=== PATIENT | female | born 1980 | race Caucasian/White ===

== ENCOUNTER 2017-02-14 12:29 | Inpatient (IN) | payer OTHER ==
[~2017-02-14] VITALS: Ht 157.4 cm; Wt 55.9 kg
[2017-02-14 12:30] VITALS: BP 100/64
[2017-02-14 12:54] LABS: HEMATOCRIT 39.6 % (37.0-47.0); HEMOGLOBIN 13.4 g/dl (12.0-16.0); MEAN CORPUSCULAR HGB 34.2 pg (27.0-31.0); MEAN CORPUSCULAR HGB CONC 33.8 g/dl (33.0-37.0); MEAN PLATELET VOLUME 10.7 fl (9.6-12.3); PLATELET COUNT AUTOMATED 219 10*3/uL (130-400); RED BLOOD COUNT 3.92 10*6/uL (4.10-5.10); RED CELL DISTRI WIDTH 13.1 % (0-14.5); WHITE BLOOD COUNT 27.8 10*3/uL (4.8-10.8)
[2017-02-14 13:06] LABS: PROTHROMBIN TIME 10.3 SECONDS (9.0-12.4)
[2017-02-14 13:11] LABS: LYMPHOCYTE # 1.4 10*3/uL (1.3-4.4); MONOCYTE # 1.4 10*3/uL (0.1-1.0); NEUTROPHILS 90 % (47-73); PLATELET SUFFICIENCY NORMAL (NORMAL); TOTAL CELLS COUNTED 100 #CELLS
[2017-02-14 13:12] LABS: ALBUMIN 3.2 gm/dl (3.1-4.5); ALKALINE PHOSPHATASE 86 U/L (45-117); BILIRUBIN, TOTAL 0.4 mg/dl (0.2-1.0); BUN 9 mg/dl (7-24); CARBON DIOXIDE 25 mmol/L (21-32); CHLORIDE 108 mmol/L (98-107); EST GLOM FILT AFRICAN AMERICAN > 60 ml/min; GLUCOSE 88 mg/dL (65-99); POTASSIUM 3.7 mmol/L (3.5-5.1); SGOT/AST 8 IU/L (3-35); SGPT/ALT 10 U/L (12-78); SODIUM 138 mmol/L (136-145); TOTAL PROTEIN 6.9 gm/dL (6.4-8.2)
[2017-02-14 13:15] LABS: TROPONIN I < 0.015 ng/ml (<0.045)
[2017-02-14 14:50] VITALS: BP 99/60
[2017-02-14 15:30] VITALS: BP 100/66
[2017-02-14 20:00] VITALS: BP 96/59
[2017-02-15] VITALS: BP 97/60
[2017-02-15 06:13] LABS: BASO % 0.1 % (0.0-1.0); EOS % 0.1 % (1.0-4.0); IG # 0.3 10*3/uL (0.0-0.1); LYMPH # 1.6 10*3/uL (1.3-4.4); LYMPH % 8.1 % (27.0-41.0); MEAN CORPUSCULAR HGB CONC 33.6 g/dl (33.0-37.0); MEAN PLATELET VOLUME 10.8 fl (9.6-12.3); MONO # 1.3 10*3/uL (0.1-1.0); MONO % 6.7 % (3.0-9.0); NEUT # 16.4 10*3/uL (2.3-7.9); NEUT % 83.6 % (47.0-73.0); PLATELET COUNT AUTOMATED 187 10*3/uL (130-400); RED BLOOD COUNT 3.15 10*6/uL (4.10-5.10); RED CELL DISTRI WIDTH 13.2 % (0-14.5); WHITE BLOOD COUNT 19.6 10*3/uL (4.8-10.8)
[2017-02-15 06:15] LABS: HEMOGLOBIN 10.7 g/dl (12.0-16.0)
[2017-02-15 06:16] LABS: HEMATOCRIT 31.8 % (37.0-47.0)
[2017-02-15 06:20] LABS: BUN 7 mg/dl (7-24); CARBON DIOXIDE 21 mmol/L (21-32); CHLORIDE 113 mmol/L (98-107); CHOLESTEROL 76 mg/dL (<200); EST GLOM FILT AFRICAN AMERICAN > 60 ml/min; FREE T4 1.17 ng/dl (0.76-1.46); GLUCOSE 91 mg/dL (65-99); HDL CHOLESTEROL 33 mg/dl (40-60); LDL CHOLESTEROL 33 mg/dL (9-159); MAGNESIUM 1.6 mg/dL (1.5-2.1); POTASSIUM 3.2 mmol/L (3.5-5.1); SODIUM 140 mmol/L (136-145); TRIGLYCERIDES 50 mg/dl (<150); VLDL CHOLESTEROL 10 mg/dL (6-40)
[2017-02-15 06:55] LABS: FOLIC ACID 3.44 ng/mL (>5.38)
[2017-02-15 08:00] VITALS: BP 103/66
[2017-02-15 12:00] VITALS: BP 99/61
[2017-02-15 16:00] VITALS: BP 101/66
[2017-02-15 20:00] VITALS: BP 140/82
[2017-02-16] VITALS: BP 130/58
[2017-02-16 08:41] LABS: BILIRUBIN NEGATIVE (NEGATIVE); BLOOD TRACE-INTACT (NEGATIVE); CLARITY CLOUDY (CLEAR); COLOR YELLOW (YELLOW); GLUCOSE NEGATIVE (NEGATIVE); KETONE NEGATIVE (NEGATIVE); LEUKO ESTERASE NEGATIVE (NEGATIVE); NITRITE NEGATIVE (NEGATIVE); PH 5.5 (5.0-9.0); PROTEIN NEGATIVE (NEGATIVE); UROBILINOGEN 0.2 E.U./dl (0.2-1.0)
[2017-02-16 08:50] LABS: URINE AMPHETAMINES < 1000 (1000ng/ml); URINE BARBITURATES < 200 (200ng/ml); URINE COCAINE < 300 (300ng/ml)
[2017-02-16 09:36] LABS: BACTERIA 2+; MUCOUS 2+; URINE REFLEX COMMENT YES (NO)
[2017-02-16 09:53] LABS: BASO % 0.2 % (0.0-1.0); EOS % 0.1 % (1.0-4.0); HEMATOCRIT 28.8 % (37.0-47.0); HEMOGLOBIN 9.8 g/dl (12.0-16.0); IG # 0.1 10*3/uL (0.0-0.1); LYMPH # 1.7 10*3/uL (1.3-4.4); LYMPH % 12.9 % (27.0-41.0); MEAN CELL VOLUME 99.3 fl (81.0-99.0); MEAN CORPUSCULAR HGB 33.8 pg (27.0-31.0); MEAN PLATELET VOLUME 9.9 fl (9.6-12.3); MONO # 1.4 10*3/uL (0.1-1.0); MONO % 10.7 % (3.0-9.0); NEUT # 9.9 10*3/uL (2.3-7.9); NEUT % 75.1 % (47.0-73.0); PLATELET COUNT AUTOMATED 193 10*3/uL (130-400); RED CELL DISTRI WIDTH 13.3 % (0-14.5); WHITE BLOOD COUNT 13.2 10*3/uL (4.8-10.8)
[2017-02-16 10:27] LABS: BUN 5 mg/dl (7-24); CARBON DIOXIDE 22 mmol/L (21-32); CHLORIDE 115 mmol/L (98-107); EST GLOM FILT AFRICAN AMERICAN > 60 ml/min; GLUCOSE 93 mg/dL (65-99); POTASSIUM 3.1 mmol/L (3.5-5.1); SODIUM 142 mmol/L (136-145)
[2017-02-16 12:20] VITALS: BP 99/57
[2017-02-16 16:00] VITALS: BP 114/67
[2017-02-16 20:00] VITALS: BP 106/74
[2017-02-17] VITALS: BP 112/67
[2017-02-17 07:06] LABS: BASO % 0.1 % (0.0-1.0); EOS % 0.1 % (1.0-4.0); HEMATOCRIT 27.7 % (37.0-47.0); HEMOGLOBIN 9.2 g/dl (12.0-16.0); IG # 0.1 10*3/uL (0.0-0.1); LYMPH # 2.1 10*3/uL (1.3-4.4); LYMPH % 18.9 % (27.0-41.0); MEAN CORPUSCULAR HGB 33.2 pg (27.0-31.0); MEAN CORPUSCULAR HGB CONC 33.2 g/dl (33.0-37.0); MEAN PLATELET VOLUME 10.5 fl (9.6-12.3); MONO # 1.4 10*3/uL (0.1-1.0); MONO % 12.7 % (3.0-9.0); NEUT # 7.3 10*3/uL (2.3-7.9); NEUT % 67.2 % (47.0-73.0); PLATELET COUNT AUTOMATED 223 10*3/uL (130-400); RED BLOOD COUNT 2.77 10*6/uL (4.10-5.10); RED CELL DISTRI WIDTH 13.3 % (0-14.5); WHITE BLOOD COUNT 10.8 10*3/uL (4.8-10.8)
[2017-02-17 07:32] LABS: ALBUMIN 1.9 gm/dl (3.1-4.5); BUN 6 mg/dl (7-24); CARBON DIOXIDE 23 mmol/L (21-32); CHLORIDE 113 mmol/L (98-107); GLUCOSE 87 mg/dL (65-99); POTASSIUM 3.2 mmol/L (3.5-5.1); SODIUM 143 mmol/L (136-145)
[2017-02-17 07:36] LABS: ALKALINE PHOSPHATASE 71 U/L (45-117); BILIRUBIN, TOTAL 0.4 mg/dl (0.2-1.0); EST GLOM FILT AFRICAN AMERICAN > 60 ml/min; SGOT/AST 19 IU/L (3-35); SGPT/ALT 21 U/L (12-78); TOTAL PROTEIN 5.1 gm/dL (6.4-8.2)
[2017-02-17 08:00] VITALS: BP 115/67
[2017-02-17] MEDS ORDERED: NATURE'S BLEND F1 MG PO (09:29)
[2017-02-17] MEDS ORDERED: LEVAQUIN750 M1 PO (09:29)
[2017-02-17] MEDS ORDERED: VITAMIN D50000 I3 PO (09:29)
== END 2017-02-17 13:40 | disposition home or self-care (01) | DRG 871 ==
LOC: ED 12:29 → 4E 14:17 → EDHOLD 14:17 → 4E 14:33
PROVIDERS: Internal Medicine Hospice and Palliative Medicine; Nurse Practitioner Family
DX: A41.9 Sepsis, unspecified organism (principal); J15.6 Pneumonia due to other Gram-negative bacteria; D68.51 Activated protein C resistance; E87.8 Other disorders of electrolyte and fluid balance, not elsewhere classified; E44.1 Mild protein-calorie malnutrition; F12.10 Cannabis abuse, uncomplicated; E87.6 Hypokalemia; E53.8 Deficiency of other specified B group vitamins; E55.9 Vitamin D deficiency, unspecified; Z86.711 Personal history of pulmonary embolism; Z98.51 Tubal ligation status; Z83.3 Family history of diabetes mellitus; Z88.1 Allergy status to other antibiotic agents; Z88.8 Allergy status to other drugs, medicaments and biological substances; Z71.6 Tobacco abuse counseling; Z72.0 Tobacco use; Z68.22 Body mass index [BMI] 22.0-22.9, adult

== ENCOUNTER 2017-05-23 17:36 | Emergency (ER) | payer SELFPAY ==
[~2017-05-23] VITALS: Ht 157.4 cm; Wt 52.2 kg
[~2017-05-23 17:36] MED LIST: LEVAQUIN750 M1 PO; NATURE'S BLEND F1 MG PO; VITAMIN D50000 I3 PO
[2017-05-23] MEDS ORDERED: CLINDAMYCIN HC300 MG PO (18:24)
[2017-05-23] MEDS ORDERED: HYDROCODONE BIT1 T11 PO (18:24)
== END 2017-05-23 18:38 | disposition home or self-care (01) ==
LOC: ED 17:36
DX: K02.9 Dental caries, unspecified (principal); F12.10 Cannabis abuse, uncomplicated; F17.200 Nicotine dependence, unspecified, uncomplicated; Z88.1 Allergy status to other antibiotic agents

== ENCOUNTER 2017-05-25 14:09 | Inpatient (IN) | payer SELFPAY ==
[~2017-05-25] VITALS: Ht 157 cm; Wt 52.0 kg
--- NOTE | ~2017-05-25 | CON ---
[place], [place] REPORT OF CONSULTATION NAME: LANCE LAL UNIT #: [id number] ROOM: 412 DOCTOR: PARUL ECKERT DMD BIRTHDATE: [birth year] DOS: HISTORY OF PRESENT ILLNESS: The patient was administered for right-sided facial swelling. On exam, moderate right-sided mandibular swelling, extending under the angle of the mandible and into the mental region. Redness extending down the right lateral neck to the collar bone. The patient denies any dyspnea or dysphagia. Intraoral exam: The patient has minimal opening of ____ 10 mm. Tooth #32 appears to be impacted. Tooth #31 appears to be fractured. Moderate buccal space swelling noted. Discussed treatment options with patient including continued IV antibiotics to reduce swelling and improve opening prior to treatment currently with incision and drainage and potential extraction depending on opening once general anesthesia has been administered. The patient chose to have the I and D and extraction if possible. The patient to be n.p.o. and will be scheduled for surgery today. PARUL ECKERT DMD CM:CONSTR:REPORT OF CONSULTATION 1026 05/26/17 2136 interface
--- NOTE | ~2017-05-25 | O ---
[place], [place] OPERATIVE NOTE NAME: LANCE LAL UNIT #: [id number] ROOM: 412 DOCTOR: BABAR BEANPARUL BIRTHDATE: [birth year] DOS: PREOPERATIVE DIAGNOSES: Caries, abscess, tooth #31 and facial cellulitis. POSTOPERATIVE DIAGNOSES: Caries, abscess, tooth #31 and facial cellulitis. ANESTHESIA: General anesthesia with endotracheal intubation. FLUIDS: Minimal. ESTIMATED BLOOD LOSS: Minimal. COMPLICATIONS: None. CONDITION: To PACU, stable. DESCRIPTION OF PROCEDURE: The patient was brought to the OR and placed in a supine position. IV and EKG lines were placed. Endotracheal intubation and general anesthesia was administered. The patient was prepped and draped for oral procedures. Risks and benefits were explained to the patient prior to surgery. Clinical exam and x-rays taken determined irreversible pulpitis tooth #31 with associated abscess and facial cellulitis from the buccal space extending to mandibular and submental areas. PROCEDURES PERFORMED: 8 mL of 0.5% Sensorcaine with 1:100,000 epinephrine administered. Complete extraction tooth #31 and a stab incision made buckle of the tooth #30, drainage achieved approximately 20-30 mL purulent fluid. Lavaged x 2. Throat pack removed. The patient left the OR in good condition. Areas were not sutured to allow continued drainage. Cultures were taken for sensitivity. The patient left the OR in good condition and went to PACU. PARUL ECKERT DMD CM:OPRECORD:OPERATIVE NOTE [id number] PARUL ECKERT DMD 05/26/17 1547 interface
[~2017-05-25 14:09] MED LIST changes: +CLINDAMYCIN HC300 MG PO; +HYDROCODONE BIT1 T11 PO
[2017-05-25 14:16] VITALS: BP 129/81
[2017-05-25 14:43] LABS: BASO % 0.1 % (0.0-1.0); EOS % 0.3 % (1.0-4.0); HEMOGLOBIN 13.2 g/dl (12.0-16.0); IG # 0.1 10*3/uL (0.0-0.1); LYMPH # 1.6 10*3/uL (1.3-4.4); LYMPH % 10.1 % (27.0-41.0); MEAN CELL VOLUME 97.3 fl (81.0-99.0); MEAN CORPUSCULAR HGB 32.9 pg (27.0-31.0); MEAN CORPUSCULAR HGB CONC 33.8 g/dl (33.0-37.0); MEAN PLATELET VOLUME 9.6 fl (9.6-12.3); MONO # 0.9 10*3/uL (0.1-1.0); MONO % 5.8 % (3.0-9.0); NEUT # 12.8 10*3/uL (2.3-7.9); NEUT % 83.2 % (47.0-73.0); PLATELET COUNT AUTOMATED 336 10*3/uL (130-400); RED BLOOD COUNT 4.01 10*6/uL (4.10-5.10); RED CELL DISTRI WIDTH 12.7 % (0-14.5); WHITE BLOOD COUNT 15.4 10*3/uL (4.8-10.8)
[2017-05-25 14:58] LABS: ALBUMIN 3.1 gm/dl (3.1-4.5); ALKALINE PHOSPHATASE 81 U/L (45-117); BILIRUBIN, TOTAL 0.2 mg/dl (0.2-1.0); BUN 6 mg/dl (7-24); CARBON DIOXIDE 24 mmol/L (21-32); CHLORIDE 108 mmol/L (98-107); EST GLOM FILT AFRICAN AMERICAN > 60 ml/min; GLUCOSE 92 mg/dL (65-99); POTASSIUM 3.7 mmol/L (3.5-5.1); SGOT/AST 9 IU/L (3-35); SGPT/ALT 11 U/L (12-78); SODIUM 140 mmol/L (136-145); TOTAL PROTEIN 7.3 gm/dL (6.4-8.2)
[2017-05-25 17:11] VITALS: BP 121/74
[2017-05-25 18:24] VITALS: BP 131/76
[2017-05-25 20:00] VITALS: BP 114/62
[2017-05-26] VITALS (10 sets, daily range): BP systolic 105–125; BP diastolic 50–70
[2017-05-26 05:20] LABS: BASO % 0.1 % (0.0-1.0); EOS % 0.1 % (1.0-4.0); HEMATOCRIT 30.9 % (37.0-47.0); HEMOGLOBIN 10.4 g/dl (12.0-16.0); IG # 0.1 10*3/uL (0.0-0.1); LYMPH % 14.4 % (27.0-41.0); MEAN CELL VOLUME 97.8 fl (81.0-99.0); MEAN CORPUSCULAR HGB 32.9 pg (27.0-31.0); MEAN CORPUSCULAR HGB CONC 33.7 g/dl (33.0-37.0); MEAN PLATELET VOLUME 10.2 fl (9.6-12.3); MONO # 1.3 10*3/uL (0.1-1.0); MONO % 9.4 % (3.0-9.0); NEUT # 10.6 10*3/uL (2.3-7.9); NEUT % 75.4 % (47.0-73.0); PLATELET COUNT AUTOMATED 268 10*3/uL (130-400); RED BLOOD COUNT 3.16 10*6/uL (4.10-5.10); RED CELL DISTRI WIDTH 12.8 % (0-14.5); WHITE BLOOD COUNT 14.1 10*3/uL (4.8-10.8)
[2017-05-26 05:34] LABS: ALBUMIN 2.4 gm/dl (3.1-4.5); BUN 3 mg/dl (7-24); CARBON DIOXIDE 24 mmol/L (21-32); CHLORIDE 107 mmol/L (98-107); GLUCOSE 88 mg/dL (65-99); MAGNESIUM 1.7 mg/dL (1.5-2.1); SGOT/AST 8 IU/L (3-35); SGPT/ALT 9 U/L (12-78); SODIUM 140 mmol/L (136-145)
[2017-05-26 05:43] LABS: ALKALINE PHOSPHATASE 63 U/L (45-117); BILIRUBIN, TOTAL 0.3 mg/dl (0.2-1.0); CHOLESTEROL 77 mg/dL (<200); EST GLOM FILT AFRICAN AMERICAN > 60 ml/min; FREE T4 1.26 ng/dl (0.76-1.46); HDL CHOLESTEROL 27 mg/dl (40-60); LDL CHOLESTEROL 37 mg/dL (9-159); PHOSPHOROUS 3.1 mg/dL (2.5-4.9); TOTAL PROTEIN 5.7 gm/dL (6.4-8.2); TRIGLYCERIDES 66 mg/dl (<150); VLDL CHOLESTEROL 13 mg/dL (6-40)
[2017-05-26 07:02] LABS: FOLIC ACID 3.02 ng/mL (>5.38); VITAMIN D, 25-HYDROXY 19.6 ng/mL (30-100)
[2017-05-26 07:08] LABS: HEMOGLOBIN A1c 5.3 % (4.8-5.6)
[2017-05-27] VITALS: BP 109/62
[2017-05-27 05:50] LABS: BASO % 0.1 % (0.0-1.0); HEMATOCRIT 29.8 % (37.0-47.0); HEMOGLOBIN 10.1 g/dl (12.0-16.0); IG # 0.1 10*3/uL (0.0-0.1); LYMPH # 1.8 10*3/uL (1.3-4.4); LYMPH % 10.7 % (27.0-41.0); MEAN CELL VOLUME 98.3 fl (81.0-99.0); MEAN CORPUSCULAR HGB 33.3 pg (27.0-31.0); MEAN CORPUSCULAR HGB CONC 33.9 g/dl (33.0-37.0); MEAN PLATELET VOLUME 10.2 fl (9.6-12.3); MONO # 1.2 10*3/uL (0.1-1.0); MONO % 6.8 % (3.0-9.0); NEUT % 81.6 % (47.0-73.0); PLATELET COUNT AUTOMATED 292 10*3/uL (130-400); RED BLOOD COUNT 3.03 10*6/uL (4.10-5.10); RED CELL DISTRI WIDTH 12.9 % (0-14.5); WHITE BLOOD COUNT 17.2 10*3/uL (4.8-10.8)
[2017-05-27 05:55] LABS: BUN 8 mg/dl (7-24); CARBON DIOXIDE 24 mmol/L (21-32); CHLORIDE 110 mmol/L (98-107); EST GLOM FILT AFRICAN AMERICAN > 60 ml/min; GLUCOSE 106 mg/dL (65-99); POTASSIUM 3.9 mmol/L (3.5-5.1); SODIUM 143 mmol/L (136-145)
[2017-05-27 08:00] VITALS: BP 111/45
[2017-05-27 12:00] VITALS: BP 121/70
[2017-05-27 16:00] VITALS: BP 92/50
[2017-05-27 20:00] VITALS: BP 104/57
[2017-05-28] VITALS: BP 117/73
[2017-05-28 06:11] LABS: BASO % 0.1 % (0.0-1.0); EOS % 0.3 % (1.0-4.0); IG # 0.1 10*3/uL (0.0-0.1); LYMPH % 27.5 % (27.0-41.0); MEAN CELL VOLUME 98.7 fl (81.0-99.0); MEAN CORPUSCULAR HGB 32.9 pg (27.0-31.0); MEAN CORPUSCULAR HGB CONC 33.3 g/dl (33.0-37.0); MEAN PLATELET VOLUME 9.9 fl (9.6-12.3); MONO # 0.7 10*3/uL (0.1-1.0); MONO % 6.2 % (3.0-9.0); NEUT % 65.3 % (47.0-73.0); PLATELET COUNT AUTOMATED 294 10*3/uL (130-400); RED BLOOD COUNT 3.04 10*6/uL (4.10-5.10); WHITE BLOOD COUNT 10.7 10*3/uL (4.8-10.8)
[2017-05-28 06:34] LABS: ALBUMIN 2.3 gm/dl (3.1-4.5); ALKALINE PHOSPHATASE 59 U/L (45-117); BILIRUBIN, TOTAL 0.1 mg/dl (0.2-1.0); BUN 12 mg/dl (7-24); CARBON DIOXIDE 26 mmol/L (21-32); CHLORIDE 111 mmol/L (98-107); EST GLOM FILT AFRICAN AMERICAN > 60 ml/min; GLUCOSE 90 mg/dL (65-99); POTASSIUM 3.7 mmol/L (3.5-5.1); SGOT/AST 14 IU/L (3-35); SGPT/ALT 15 U/L (12-78); SODIUM 145 mmol/L (136-145); TOTAL PROTEIN 5.5 gm/dL (6.4-8.2)
[2017-05-28 08:00] VITALS: BP 126/74
[2017-05-28] MEDS ORDERED: NATURE'S BLEND F1 MG PO (10:44)
[2017-05-28] MEDS ORDERED: SUPRAX400 M2 PO (10:44)
[2017-05-28] MEDS ORDERED: IBU800 MG PO (10:45)
[2017-05-28] MEDS ORDERED: VITAMIN D5000 UNI1 PO (10:45)
[2017-05-28] MEDS ORDERED: PREDNISONE50 MG PO (11:44)
[2017-05-28] MEDS ORDERED: AUGMENTIN 875-875 MG PO (12:00)
== END 2017-05-28 12:09 | disposition home or self-care (01) | DRG 871 ==
LOC: ED 14:09 → EDHOLD 17:20 → 4E 17:20
PROVIDERS: Internal Medicine Hospice and Palliative Medicine; Nurse Practitioner Family; Registered Nurse
PROC: 0CDXXZ0 Extraction of Lower Tooth, Single, External Approach (ICD-10-PCS; principal; 2017-05-26)
DX: A41.9 Sepsis, unspecified organism (principal); E43 Unspecified severe protein-calorie malnutrition; E87.8 Other disorders of electrolyte and fluid balance, not elsewhere classified; L03.213 Periorbital cellulitis; K04.7 Periapical abscess without sinus; F17.210 Nicotine dependence, cigarettes, uncomplicated; E87.6 Hypokalemia; D64.9 Anemia, unspecified; E83.51 Hypocalcemia; R73.9 Hyperglycemia, unspecified; F12.10 Cannabis abuse, uncomplicated; Z88.8 Allergy status to other drugs, medicaments and biological substances; Z71.6 Tobacco abuse counseling; Z83.3 Family history of diabetes mellitus